=== PATIENT | female | born 1955 | race Caucasian/White ===

== ENCOUNTER → 2017-07-29 | Day surgery (SDC) | payer MEDICARE, OTHER ==
[~2017-07-29] VITALS: Ht 154.9 cm; Wt 97.0 kg
[~2017-07-29] MED LIST: *morphine SULFATE 8 MG/ML PERIprocedure ONLY ONE; ACETAMINOPHEN 1000 MG/100 ML 100 ML IV ONE; ALBU1AER5 INH; APREPITANT 40 MG CAP ONE; BUPIVACAINE/EPINEPHRINE 0.25% 50 ML VIAL ONE; DO NOT ADM ANY ANTICOAGULANT DRUGS PRN; ENAL10TA7 PO; FLUT1SPR5 EACH NARE; GLYCOPYRROLATE 1 MG/5 ML SYRINGE IV PUSH ONE; LACTATED RINGER'S 1000 ML INJ 2,000 ML IV ONE; LIDOCAINE HCL 1% PF 5 ML SYRINGE OTHER ONE; METF500T PO; MORPHINE SULFATE 4 MG/ML INJ IV PUSH PRN; NEOSTIGMINE 5 MG/5 ML SYRINGE IV PUSH ONE; ONDANSETRON HCL 4 MG/2 ML VIAL IV PUSH ONE; ONDANSETRON HCL 4 MG/2 ML VIAL IV PUSH PRN; ONDANSETRON ODT 4 MG TAB ONE; PROPOFOL 200 MG/20 ML AMP IV ONE; ROCURONIUM INJ 50 MG/5 ML SYRINGE IV PUSH ONE; SODIUM CHLORIDE 0.9% FLUSH 10 ML FLUSH IV FLUSH PRN; SODIUM CHLORIDE 0.9% FLUSH 10 ML FLUSH IV FLUSH SCH; SUCCINYLCHOLINE CHLORIDE 200 MG/10 ML VIAL IV ONE; ZOFR4TAB PO; ZOLO100T PO; [UNRECOGNIZED DRUG - CODE] INTRACATH; ceFAZolin INJ 1,000 MG VIAL ONE; ePHEDrine/NS 25 MG/5 ML SYRINGE IV ONE; metroNIDAZOLE 500 MG INJ 100 ML IV ONE; oxyCODONE/ACETAMINOPHEN 5 MG/325 MG TAB PO PRN
[2017-07-29 07:49] LABS: AUTOMATED NEUTROPHIL # 2.7 TH/MM3 (1.8-7.7); BASOPHIL % 0.6 % (0.0-2.0); EOSINOPHIL # 0.1 TH/MM3 (0-0.4); EOSINOPHIL % 1.8 % (0.0-4.0); HEMATOCRIT 34.8 % (35.0-46.0); HEMOGLOBIN 11.6 GM/DL (11.6-15.3); LYMPH % 44.9 % (9.0-44.0); LYMPHOCYTE # 2.8 TH/MM3 (1.0-4.8); MEAN CELL VOLUME 84.6 FL (80.0-100.0); MEAN CORPUSCULAR HEMOGLOBIN 28.2 PG (27.0-34.0); MEAN CORPUSCULAR HGB CONC 33.4 % (32.0-36.0); MEAN PLATELET VOLUME 9.2 FL (7.0-11.0); MONO % 8.9 % (0.0-8.0); MONOCYTE # 0.6 TH/MM3 (0-0.9); NEUT % 43.8 % (16.0-70.0); PLATELET COUNT 183 TH/MM3 (150-450); RED BLOOD COUNT 4.11 MIL/MM3 (4.00-5.30); RED CELL DISTRIBUTION WIDTH 13.4 % (11.6-17.2); WHITE BLOOD COUNT 6.2 TH/MM3 (4.0-11.0)
[2017-07-29 11:25] VITALS: BP 154/68; PULSE 62; RESP 18; O2SAT 97
--- NOTE | 2017-07-29 19:42 | EKG ---
Date Performed: 07/29/2017 Time Performed: 06:57:51 PTAGE: 62 years EKG: SINUS BRADYCARDIA WITH FIRST DEGREE AV BLOCK LOW QRS VOLTAGE IN PRECORDIAL LEADS PATTERN CO NSISTENT WITH PULMONARY DISEASE MODERATE VOLTAGE CRITERIA FOR LVH, CONSIDER NORMAL VARIANT ABNORMAL E CG Compared to PREVIOUS TRACING , the patient is now bradycardic. PREVIOUS TRACIN03/20/2015 09.31 DOCTOR: Sarah Machado Interpretating Date/Time 07/29/2017 19:40:09
--- NOTE | 2017-07-29 22:46 | MP ---
cc: Tyrese Mock MD, Lars S MD DATE OF OPERATION: 07/29/2017 PREOPERATIVE DIAGNOSIS: History of gastric bypass, vomiting, concern for gastrojejunostomy obstruction. POSTOPERATIVE DIAGNOSIS: Normal gastrojejunostomy, vomiting, obstruction. PROCEDURE PERFORMED: Esophagogastroduodenoscopy. 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 ANESTHESIA: GETA. IV FLUIDS: See anesthesia sheet ESTIMATED BLOOD LOSS: None. DRAINS: None. COMPLICATIONS: None WOUND CLASSIFICATION: Clean/contaminated. FINDINGS: A 5 cm gastric pouch, patent gastrojejunostomy. No evidence of strictures, ulceration or abnormality seen within the gastrojejunal pouch. INDICATIONS FOR PROCEDURE: The patient is a 62-year-old female with history of gastric bypass. The patient did relatively well; however, developed nausea, vomiting, decreased p.o. intake. There was concern for dilation of the [id number] and possible chronic obstruction. Therefore, the patient had undergone diagnostic laparoscopy with exploration. Dr. Massey consulted intraoperatively for endoscopy. DETAILS OF PROCEDURE: The patient was already intubated, supine undergoing a diagnostic laparoscopy. Dr. Coelho asked for assistance with esophagogastroduodenoscopy. Dr. Coelho occluded the distal [id number]-dc-isct. The Pentax gastroscope was obtained and entered through the mouth, down the oropharynx and through the esophagus down to the gastrojejunal pouch. On exam, there is a patent gastrojejunal pouch with no evidence of ulceration, stricturing or abnormality. The scope passed freely through the gastrojejunostomy. This was insufflated and again no evidence of abnormality or obstruction to explain the patient's symptoms. The scope was then withdrawn in the usual manner with desufflation and no complication. Dr. Coelho then continued his further exploration with a diagnostic laparoscopy. Refer to Dr. Coelho's note for dictation and his details of procedure. MD ARTURO Werner/ , 10:24 PM , 10:44 PM [facility]
== END | disposition home or self-care (01) ==
LOC: HSDC 06:31
PROVIDERS: ATTEND Surgery
DX: R11.2 Nausea with vomiting, unspecified (principal); Z98.84 Bariatric surgery status; I44.0 Atrioventricular block, first degree
CPT/HCPCS: 00731; 00790; 43235; 49320; 85025; 86850; 86900; 86901; 93005; J0131; J0330; J0690; J2270; J2405; J2710; J3010; J7120; J8501